=== PATIENT | male | born 1960 | race Caucasian/White ===

== ENCOUNTER → 2024-07-07 | Outpatient (CLI) | payer BC, SELFPAY ==
[2024-07-07 16:59] LABS: Thyroid Stimulating Hormone 1.25 uIU/mL (0.55-4.78)
[2024-07-12 07:00] LABS: ANA Screen, IFA NEGATIVE (NEGATIVE)
== END | disposition home or self-care (01) ==
LOC: COPL 15:27
PROVIDERS: PCP Family Medicine; Referring Provider Specialist; Visit Provider Specialist
DX: R13.10 Dysphagia, unspecified (principal)
CPT/HCPCS: 36415; 84443; 86038

== ENCOUNTER 2024-07-19 09:50 | Day surgery (SDC) | payer BC, SELFPAY ==
[2024-07-19] VITALS (8 sets, daily range): BP systolic 123–153; BP diastolic 80–95; PULSE 53–69; RESP 12–18; TEMP 36.5–37.2; O2SAT 92–99; BMI 30.1
[2024-07-19] MEDS: ONDANSETRON INJ 2 MG/ML INJ 2 ML 4 MG IV (12:28)
[2024-07-19] MEDS: fentaNYL CIT INJ 50 mCg/ML AMP 2ML (ASD USE ONLY) IV (12:31)
[2024-07-19] MEDS: DiphenhydrAMINE INJ 50 MG/ML VIAL 25 MG IV (12:31)
[2024-07-19] MEDS: MIDAZOLAM INJ 1 MG/ML VIAL 2 ML (ASD USE ONLY) 2 MG IV (12:31)
[2024-07-19] MEDS: BENZOCAINE 20% (Hurricaine) SPRAY 1 DOSE TOP (12:32)
== END 2024-07-19 13:30 | disposition home or self-care (01) ==
PROVIDERS: PCP Family Medicine; Referring Provider Specialist; Visit Provider Specialist
PROC: (CPT 43239; principal; 2024-07-19 11:45)
DX: K21.00 Gastro-esophageal reflux disease with esophagitis, without bleeding (principal); K22.2 Esophageal obstruction; K29.70 Gastritis, unspecified, without bleeding
CPT/HCPCS: 43248; 43239; A4649; C1769; J1200; J2250; J2405; J3010; A9270

== ENCOUNTER → 2024-12-30 | Outpatient (CLI) | payer BC, SELFPAY ==
[2024-12-30 10:53] LABS: Alanine Aminotransferase 33 U/L (10-49); Albumin, Serum 4.2 gm/dL (3.4-4.8); Albumin/Globulin Ratio 1.8 (1.2-2.2); Alkaline Phosphatase 69 U/L (46-116); Anion Gap 6 (7-16); Aspartate Amino Transferase 25 U/L (0-34); BUN/Creatinine Ratio 11 Ratio (12-20); Bilirubin,Total 0.9 mg/dL (0.3-1.2); Blood Urea Nitrogen 11 mg/dL (9-23); Calcium 9.2 mg/dL (8.3-10.6); Calcium (Corrected) 9.2 mg/dL (8.5-10.1); Carbon Dioxide 27.4 mMol/L (20.0-31.0); Cardiac Risk Estimate 3.2 RATIO (4.0-6.7); Chloride 111 mMol/L (98-107); Cholesterol 133 mg/dL (132-200); Creatinine (Component) 1.0 mg/dL (0.6-1.3); Globulin 2.4 gm/dL (2.3-3.5); Glucose 103 mg/dL (74-106); HDL Cholesterol 42 mg/dL (40-60); LDL Cholesterol,Calculated 73 mg/dL (0-130); Osmolality,Calculated 286 (275-295); Potassium 4.2 mMol/L (3.4-5.1); Sodium 144 mMol/L (136-145); Total Protein 6.6 gm/dL (5.7-8.2); Triglycerides 92 mg/dL (30-150); eGFR > 60 See Note
[2024-12-30 10:59] LABS: Prostate Specific Antigen 0.56 ng/mL (0-4.00)
== END | disposition home or self-care (01) ==
LOC: COPL 07:58
PROVIDERS: PCP Family Medicine; Referring Provider Family Medicine; Visit Provider Family Medicine
DX: I25.10 Atherosclerotic heart disease of native coronary artery without angina pectoris (principal); Z12.5 Encounter for screening for malignant neoplasm of prostate
CPT/HCPCS: 36415; 80053; 80061; 84153

== ENCOUNTER 2025-02-02 07:50 | Day surgery (SDC) | payer BC, SELFPAY ==
[2025-02-01 11:00] VITALS: BMI 26.9
[2025-02-02] VITALS (9 sets, daily range): BP systolic 124–157; BP diastolic 75–95; PULSE 48–71; RESP 14–20; TEMP 36.2–36.8; O2SAT 97–99; BMI 27.3
[2025-02-02] MEDS: SODIUM CHLORIDE 0.9% 500 ML 500 ML 20 ML IV (09:52)
[2025-02-02] MEDS: MIDAZOLAM INJ 1 MG/ML VIAL 2 ML (ASD USE ONLY) 2 MG IVP (09:55)
[2025-02-02] MEDS: fentaNYL CIT INJ 50 mCg/ML AMP 2ML (ASD USE ONLY) IVP (09:55)
[2025-02-02] MEDS: BENZOCAINE 20% (Hurricaine) SPRAY 1 DOSE TOP (09:55)
== END 2025-02-02 10:50 | disposition home or self-care (01) ==
PROVIDERS: PCP Family Medicine; Referring Provider Specialist; Visit Provider Specialist
PROC: (CPT 43239; principal; 2025-02-02 09:00)
DX: K22.2 Esophageal obstruction (principal); K20.90 Esophagitis, unspecified without bleeding; E78.5 Hyperlipidemia, unspecified; Z86.0100 Personal history of colon polyps, unspecified; K29.50 Unspecified chronic gastritis without bleeding
CPT/HCPCS: 43248; 43239; C1769; J1200; J2250; J3010; J7999; A9270